=== PATIENT | female | born 1985 | race Two or more races ===

== ENCOUNTER 2018-10-24 16:22 | Emergency (ER) | payer OTHER ==
[~2018-10-24] VITALS: Ht 157.5 cm; Wt 69.4 kg
[2018-10-24 16:39] VITALS: Ht 157.5 cm; Wt 69.4 kg
[2018-10-24 17:23] LABS: BASOPHIL % 1.3 % (0-2); PLATELET COUNT 241 x10^3mcL (130-400)
[2018-10-24 17:32] LABS: CARBON DIOXIDE 27.7 mmol/L (21-32); CHLORIDE SERUM 103 mmol/L (98-107); CREATININE SERUM 0.5 mg/dL (0.6-1.0); GFR1 > 60 mL/min; GLUCOSE SERUM 99 mg/dL (74-106); POTASSIUM SERUM 3.8 mmol/L (3.5-5.1); SODIUM SERUM 139 mmol/L (136-145)
[2018-10-24 17:36] LABS: ALBUMIN 3.9 g/dL (3.4-5.0); ALKALINE PHOSPHATASE 59 U/L (46-116); ALT/SGPT 51 U/L (14-59); AST/SGOT 9 U/L (15-37); BILIRUBIN TOTAL 0.4 mg/dL (0.20-1.00); LIPASE 141 IU/L (73-393); TOTAL PROTEIN, SERUM 7.9 g/dL (6.4-8.2)
[2018-10-24 17:43] LABS: UA SPECIFIC GRAVITY 1.025 (1.005-1.035); microscopic required? YES; urine erythrocyte NEGATIVE (NEGATIVE)
[2018-10-24 19:14] VITALS: BP 120/79
== END 2018-10-24 19:14 | disposition home or self-care (01) ==
LOC: ED 16:22
PROVIDERS: Emergency Medicine
DX: O30.001 Twin pregnancy, unspecified number of placenta and unspecified number of amniotic sacs, first trimester (principal); O21.0 Mild hyperemesis gravidarum; Z3A.01 Less than 8 weeks gestation of pregnancy
CPT/HCPCS: J2765; J3490; Q0092

== ENCOUNTER 2018-12-05 08:33 | Emergency (ER) | payer OTHER ==
[~2018-12-05] VITALS: Ht 157.5 cm; Wt 69.6 kg
[2018-12-05 08:40] VITALS: Ht 157.5 cm; Wt 69.6 kg
[2018-12-05 09:34] LABS: BASOPHIL % 1.2 % (0-2); PLATELET COUNT 234 x10^3mcL (130-400)
[2018-12-05 09:40] LABS: RED CELL DISTRIBUTION WIDTH 15.6 % (11.5-14.5)
[2018-12-05 11:37] VITALS: BP 126/82
== END 2018-12-05 11:37 | disposition home or self-care (01) ==
LOC: ED 08:33
PROVIDERS: Emergency Medicine
DX: O20.0 Threatened abortion (principal); E03.9 Hypothyroidism, unspecified
CPT/HCPCS: 36415